=== PATIENT | female | born 1945 | race Caucasian/White ===

== ENCOUNTER 2016-09-29 15:43 | Inpatient (IN) | payer MEDICARE, BC ==
[~2016-09-29] VITALS: Ht 152.4 cm; Wt 81.4 kg
[2016-10-05] MEDS ORDERED: DEXI60CA PO (10:41)
[2016-10-05] MEDS ORDERED: HYDR-3580 PO (10:41)
[2016-10-05] MEDS ORDERED: CLOP75TA PO (10:41)
[2016-10-05] MEDS ORDERED: ISOS10TA3 PO (10:41)
[2016-10-05] MEDS ORDERED: BUDE3CAP PO (10:41)
[2016-10-05] MEDS ORDERED: ASPI1TAB69 PO (10:41)
[2016-10-05] MEDS ORDERED: D-20TAB3 PO (10:41)
[2016-10-05] MEDS ORDERED: FERR325T PO (10:41)
[2016-10-05] MEDS ORDERED: FURO40TA PO (10:41)
[2016-10-05] MEDS ORDERED: ACET500C PO (10:44)
[2016-10-05] MEDS ORDERED: WALKER WHEELS/F1 MIS (10:53)
[2016-10-05] MEDS ORDERED: METO50TA PO (10:53)
[2016-10-05] MEDS ORDERED: EVIS60TA PO (10:53)
[2016-10-05] MEDS ORDERED: LACTCAP8 PO (10:53)
[2016-10-05] MEDS ORDERED: ZOCO40TA PO (10:53)
[2016-10-05] MEDS ORDERED: SERT25TA83 PO (10:53)
[2016-10-05] MEDS ORDERED: RALO1TAB PO (10:53)
--- NOTE | 2016-10-06 09:09 | MH ---
cc: CHRISTINA [place] DATE OF ADMISSION: 10/06/2016 ADMISSION DIAGNOSIS Osteoarthritis of the left hip. HISTORY This patient is a 71-year-old female who had a previous right hip replacement arthroplasty and had done very well. The patient has had progressive pain in the region of her left hip. The patient had x-rays showing evidence of moderate to severe arthritis of the left hip. Despite conservative care including oral medications, altered activities, physical therapy, etc. she has had continued pain. The patient declined an intra-articular injection of the left hip due to a bad injection of a previous injection. At this point surgical treatment is reasonable. She now presents for surgical treatment. PAST MEDICAL HISTORY, SOCIAL HISTORY AND FAMILY HISTORY See attached notes. PHYSICAL EXAMINATION GENERAL: A 71-year-old female in moderate distress with her left hip. HEENT: Normocephalic, atraumatic. Pupils are equal, round, reactive to light and accommodation. Extraocular motions intact. NECK: Supple. CHEST: Clear. HEART: Regular rate and rhythm. ABDOMEN: Soft, nontender. VITAL SIGNS: Height 5 feet, weight 158 pounds, BMI of 30.9, blood pressure 132/78. DIRECTED EXAMINATION: Examination of the left hip, there is flexion at 80, internal rotation 20, external rotation is 30. There is significant pain with range of motion which is rated as moderate to significant. Strength is normal. NEUROLOGIC: Examination is within normal limits. IMPRESSION Osteoarthritis of the left hip. PLAN Left total hip replacement, arthroplasty. CONSENT The risks for surgery including infection, bleeding, loss of motion, continued pain, need for further surgery, neurologic, vascular injury. The patient understands these risks and wishes to press on with surgery as outlined above. Christina Ny MD MCG/CHRIS /5:45 PM /8:54 AM
[2016-10-06] MEDS ORDERED: EXPAREL PERI-ARTICULAR INJECTION (TOTAL VOL. 60 ML) P-ARTICULR SCH ×2 (11:00)
[2016-10-06] MEDS ORDERED: INSULIN HUMAN REGULAR 1,000 UNITS/10 ML VIAL SQ PRN (11:00)
[2016-10-06] MEDS ORDERED: SODIUM CHLORID 0.9% 500 ML IV PRN (11:00)
[2016-10-06] MEDS ORDERED: ceFAZolin 2 GM PREMIX 50 ML IV SCH (11:00)
[2016-10-06] MEDS ORDERED: CHLORHEXIDINE GLUCONATE 2 % 1 PACK (2 CLOTHS) TOPICAL PRN (11:00)
[2016-10-06] MEDS ORDERED: LACTATED RINGER'S 1000 ML IV PRN (11:00)
[2016-10-06] MEDS ORDERED: SODIUM CHLORIDE 0.9% IV SCH ×2 (11:00→17:55)
[2016-10-06] MEDS ORDERED: VANCOMYCIN 1000 MG/NS 250 ML (for <70 kg) IV SCH ×2 (11:00)
[2016-10-06] MEDS ORDERED: TRANEXAMIC ACID IV SCH ×2 (11:00→17:55)
[2016-10-06] MEDS ORDERED: POVIDONE IODINE 7.5% SCRUB 118 ML BOTTLE TOPICAL SCH (11:00)
[2016-10-06] MEDS ORDERED: METOPROLOL TARTRATE 25 MG TAB PO PRN (11:00)
[2016-10-06] MEDS ORDERED: POVIDONE IODINE 5% (ANTISEPSIS KIT) 4 APPLICATIONS EACH NARE PRN (11:00)
[2016-10-06] MEDS ORDERED: dexilant PO (11:21)
[2016-10-06] MEDS ORDERED: FERR324T4 PO (11:21)
[2016-10-06] MEDS ORDERED: ASPI81CH PO (11:21)
[2016-10-06] MEDS ORDERED: MAPA500C PO (11:21)
[2016-10-06 11:38] VITALS: BP 123/69; PULSE 65; RESP 16; TEMP 98; O2SAT 96
[2016-10-06] MEDS ORDERED: PROPOFOL 200 MG/20 ML AMP IV ONE (12:15)
[2016-10-06] MEDS ORDERED: NEOSTIGMINE 3 MG/3 ML SYR IV ONE (12:15)
[2016-10-06] MEDS ORDERED: ePHEDrine/NS 25 MG/5 ML SYR IV ONE (12:15)
[2016-10-06] MEDS ORDERED: PHENYLEPH/NS 1000 MCG/10 ML SYR IV ONE (12:16)
[2016-10-06] MEDS ORDERED: ONDANSETRON HCL 4 MG/2 ML VIAL IV PUSH ONE (12:16)
[2016-10-06] MEDS ORDERED: LACTATED RINGER'S 1000 ML INJ 1,000 ML IV ONE (12:16)
[2016-10-06] MEDS ORDERED: MIDAZOLAM HCL 2 MG/2 ML VIAL ONE (13:44)
[2016-10-06] MEDS ORDERED: FAMOTIDINE 20 MG/2 ML VIAL ONE (13:44)
--- NOTE | 2016-10-06 13:58 | EKG ---
Date Performed: 10/06/2016 Time Performed: 11:39:42 PTAGE: 71 years EKG: Sinus rhythm NORMAL ECG PREVIOUS TRACING : 02/26/2016 08.31 Compared to prior tracing no significant change DOCTOR: Jamin Sandoval Interpretating Date/Time 10/06/2016 13:56:50
[2016-10-06] MEDS ORDERED: TRANEXAMIC ACID INJ 1,000 MG/10 ML AMP IV ONE (14:55)
[2016-10-06] MEDS ORDERED: ceFAZolin INJ 1,000 MG VIAL IV ONE (15:04)
[2016-10-06] MEDS ORDERED: DO NOT ADM ANY ANTICOAGULANT DRUGS PRN (15:20)
[2016-10-06] MEDS ORDERED: BUPIVACAINE LIPOSOME PF 1.3% 20 ML VIAL INFIL ONE (15:54)
[2016-10-06] MEDS ORDERED: GENTAMICIN SULFATE 80 MG/2 ML VIAL IRRIGATION ONE (16:02)
--- NOTE | 2016-10-06 16:44 | PD.OP ---
cc: Karthik Alejo MD Operative Report Date of Surgery: October 06, 2016 Preoperative Diagnosis: Osteoarthritis left hip, severe Postoperative Diagnosis: Same Procedure: Left total hip replacement arthroplasty, direct anterior exposure Anesthesia: Gen. Surgeon: Karthik Alejo [employer] Instrument Mechanic(s): JUSTIN Arambula Operation and Findings: EBL: 300 cc INDICATION: This patient presents with significant hip pain related to severe osteoarthritis to the left hip. The patient's had a previous right hip replacement surgery approximately 7 months ago and has done well.. Despite extensive conservative care this patient continues to be painful and now presents for surgical treatment. NOTE: Annia Arambula PA-C was present for the entire surgical procedure as my miller first. In my medical opinion her skill and care was necessary for the proper management of this patient. COMPONENTS: COMPANY: [email or web address] CUP: Rampart, 48, 100 series, gription surface LINER: Altrx 32, neutral STEM: Corail, size 10, standard offset, hydroxyapatite-coated HEAD: 32, +1, 12/14 taper PROCEDURE: This patient was brought to the operating room and anesthetized in the supine position and positioned on the fracture table with both legs held extended. The left hip and leg was scrubbed with alcohol followed by Hibiclens followed by ChloraPrep and draped sterilely. Antibiotics were given within routine time window and a timeout was done. A 4 inch incision was made starting 2 cm distal and 2 cm lateral to the anterior superior iliac spine. The fascia prashanth was opened longitudinally. The interval between the fascia prashanth and the rectus was opened down to the capsule of the hip joint. Retractors were positioned allowing good visualization of the capsule. This was opened longitudinally and flaps were created. Stay sutures were utilized. Exposure was excellent. The neck was cut at the proper location using fluoroscopy as a guide. The head was removed. Deep retractors were positioned allowing good visualization of the acetabulum. Acetabulum was deepened down to the floor starting with a proper size reamer and reaming up to 47 mm. A trial was utilized. Fluoroscopy was used to check position and confirmed satisfactory alignment. The rim was reamed with a 48 mm reamer and the final cup was positioned in approximately 20 of anteversion and 40-45 of abduction. Position was satisfactory. A single hole eliminator was positioned followed by the final liner. The lifting hook was utilized. The leg was dropped to the floor, maximally externally rotated and brought across the midline. Retractors were positioned. A box osteotome was utilized followed by progressive broaching to the proper stem size. Trial reduction showed excellent alignment and fit. With 60 of external rotation the leg was dropped to the floor without evidence of anterior subluxation. The wound was irrigated. The final stem was inserted and was found to be very stable. The final reduction using the final head. Stability was as previously noted. Intraoperative x-rays were taken. The wound was irrigated copiously. Hemostasis was controlled. Local anesthesia was utilized. The capsule was repaired with #2 Tycron sutures. The fascia prashanth was repaired with running 0 PDS on a loop. Subcutaneous tissue was approximated with 2-0 Vicryl and skin with running intradermal 3-0 Vicryl followed by Steri-Strips. A sterile dressing was applied. The patient was awakened and taken to the recovery room in satisfactory condition. FINDINGS: There was severe osteoarthritis of the left hip. There was complete erosion of articular cartilage with exposed bone. There was no complication that was appreciated. Karthik Alejo MD October 06, 2016 16:44
[2016-10-06] MEDS ORDERED: MISCELLANEOUS NURSING INFORMATION XX PRN (16:45)
[2016-10-06] MEDS ORDERED: HYDROmorphone HCL PCA 6 MG/30 ML IV SCH (16:45)
[2016-10-06] MEDS ORDERED: NALOXONE HCL 0.4 MG/ML AMP IV PRN ×2 (16:45)
[2016-10-06] MEDS ORDERED: MISCELLANEOUS PHARMACY INFORMATION XX ONE (16:45)
[2016-10-06] MEDS ORDERED: ACETAMINOPHEN/HYDROcodone 325 MG/10 MG TAB PO PRN (16:45)
[2016-10-06] MEDS ORDERED: Post-op Orders (for Pharmacy) MISC XX ONE (16:45)
[2016-10-06] MEDS ORDERED: ONDANSETRON HCL 4 MG/2 ML VIAL IVP PRN (16:45)
[2016-10-06] MEDS ORDERED: SODIUM CHLORIDE 0.9% FLUSH 5 ML FLUSH IVF PRN (16:45)
[2016-10-06] MEDS ORDERED: HYDR-3583 PO (16:50)
[2016-10-06] MEDS ORDERED: XARE10TA PO (16:50)
[2016-10-06] MEDS ORDERED: ACETAMINOPHEN 1000 MG/100 ML VIAL IV ONE (16:52)
--- NOTE | 2016-10-06 16:52 | HHI.FF ---
Face to Face Verification Diagnosis: (1) Primary osteoarthritis of left hip Physical Therapy Gait training Hip: Total hip, Progress to weight bearing Left LE Weight Bearing: WB as tolerated Nursing RN: 3 days/week x 2 weeks Dressing Changes: Do not change dressing I have seen patient Alice Sage on 10/06/16. My clinical findings support the need for the requested home health care services because: High risk of falls I certify that my clinical findings support that this patient is homebound because: Post-op weakness Karthik Alejo MD October 06, 2016 16:52
[2016-10-06] MEDS ORDERED: WALKER WHEELS/F1 MIS (16:53)
[2016-10-06] MEDS ORDERED: PILL SPLITTER OTHER PRN (17:00)
[2016-10-06] MEDS ORDERED: *ONDANSETRON 4 MG VIAL PERIprocedural Use ONLY ONE (17:25)
[2016-10-06] MEDS ORDERED: fentaNYL CITRATE 250 MCG/5 ML AMP ONE (17:26)
[2016-10-06] MEDS: LACTATED RINGER'S 1000 ML INJ 1,000 ML IV SCH (17:34)
[2016-10-06] MEDS ORDERED: *PROMETHAZINE 25 MG/ML VIAL PERIprocedural use ONLY ONE (17:43)
[2016-10-06 20:00] VITALS: BP 142/69; PULSE 79; RESP 22; TEMP 96.4; O2SAT 99
[2016-10-06 20:06] VITALS: O2SAT 95
[2016-10-06] MEDS: PANTOPRAZOLE SOD 40 MG DELAYED RELEASE TAB PO SCH (20:30)
[2016-10-06] MEDS: SENNOSIDES 8.6 MG TAB PO SCH (20:31)
[2016-10-06] MEDS: SODIUM CHLORIDE 0.9% FLUSH 5 ML FLUSH IVF SCH (20:32)
[2016-10-06] MEDS: ISOSORBIDE MONONITRATE 20 MG TAB PO SCH (20:32)
[2016-10-06] MEDS: MAGNESIUM HYDROXIDE SUSP 30 ML CUP PO SCH (20:33)
--- NOTE | 2016-10-06 20:33 | RADRPT ---
EXAM DATE/TIME: 10/06/2016 15:25 [facility] COMPARISON: No previous studies available for comparison. INDICATIONS : Left anterior total hip surgery. MEDICAL HISTORY : Unobtainable. SURGICAL HISTORY : Unobtainable. ENCOUNTER: Initial ACUITY: 1 day PAIN SCORE: Non-responsive. LOCATION: Left anterior hip. FINDINGS: There is a bipolar left hip arthroplasty that appears intact and normally aligned. No evidence of an acute complication. CONCLUSION: Expected intraoperative radiographic appearance left bipolar hip arthroplasty. Ta De Leon MD on October 06, 2016 at 20:31 Board Certified Radiologist. This report was verified electronically.
[2016-10-06] MEDS: PCA - TOTAL MG DILAUDID DELIVERED PER SHIFT OTHER SCH (20:34)
[2016-10-06] MEDS: PCA - TOTAL MG MORPHINE DELIVERED PER SHIFT SCH (20:37)
[2016-10-07] VITALS (8 sets, daily range): BP systolic 106–133; BP diastolic 60–76; PULSE 71–105; RESP 16–22; TEMP 95.8–98.2; O2SAT 93–98
[2016-10-07] MEDS: PCA - TOTAL MG DILAUDID DELIVERED PER SHIFT OTHER SCH (05:20)
[2016-10-07] MEDS: LACTATED RINGER'S 1000 ML INJ 1,000 ML IV SCH ×2 (05:20→16:53)
[2016-10-07] MEDS: PCA - TOTAL MG MORPHINE DELIVERED PER SHIFT SCH ×3 (05:20→21:36)
[2016-10-07 06:51] LABS: HEMATOCRIT 28.2 % (35.0-46.0); REVIEW FLAG FINAL
--- NOTE | 2016-10-07 07:55 | PD.ORT.PN ---
Subjective Subjective Remarks No complaints. Mild left thigh discomfort Once to go home from hospital Objective Vitals Vital Signs Date Time Temp Pulse Resp B/P Pulse Ox O2 Delivery O2 Flow Rate FiO2 10/07/16 05:20 18 10/07/16 04:00 96.9 84 20 106/62 95 10/07/16 00:00 96.1 87 22 112/73 96 10/06/16 20:34 14 10/06/16 20:06 95 Nasal Cannula 2.00 10/06/16 20:00 96.4 79 22 142/69 99 10/06/16 18:15 97.5 66 15 139/70 97 Nasal Cannula 2 10/06/16 18:00 75 17 138/63 98 Nasal Cannula 2 10/06/16 17:45 67 18 138/76 98 Nasal Cannula 2 10/06/16 17:34 15 10/06/16 17:30 64 13 131/83 96 Nasal Cannula 3 10/06/16 17:15 97.6 82 20 166/79 98 Nasal Cannula 3 10/06/16 11:38 98.0 65 16 123/69 96 I/O 10/06/16 10/06/16 10/06/16 10/07/16 10/07/16 10/07/16 07:00 15:00 23:00 07:00 15:00 23:00 Intake Total 2470 ml Output Total 830 ml 300 ml Balance 1640 ml -300 ml Intake Oral 780 ml IV Total 290 ml Other 1400 ml Output Urine Total 580 ml 300 ml Estimated Blood Loss 250 ml # Bowel Movements 0 0 Result Diagram: 10/07/16 0613 Objective Remarks Dressing dry No significant swelling No pain with range of motion No calf Tenderness. Negative Homans sign. Motor examination is normal Assessment & Plan Ortho Post Op Day #: 1 Problem List: Assessment and Plan Osteoarthritis left hip. Left NIDIA, direct anterior: POD #1 PLAN: Weightbearing as tolerated [place] for pain Xarelto for 28 days Discharge later today or Monday morning No dressing change Home healthcare and home physical therapy Follow-up in 2 weeks Karthik Alejo MD October 07, 2016 07:55
--- NOTE | 2016-10-07 07:58 | HHI.DS ---
Discharge Summary Admission Date October 06, 2016 at 10:30 Discharge Date: October 08, 2016 Admitting Diagnosis Osteoarthritis hip Diagnosis: (1) Primary osteoarthritis of left hip Diagnosis: Principal Procedures Left total hip replacement arthroplasty, direct anterior exposure Brief History This is a 71 year old female patient who presents with progressive arthritis of the left hip. The patient has had conservative care including medications physical therapy and altered activity. She had a previous right hip replacement and has done well. The patient had an adverse reaction to an injection of cortisone and that was not part of her treatment paradigm. CBC/BMP: 10/07/16 0613 Significant Findings Laboratory Tests Test 10/07/16 06:13 Hemoglobin 9.5 GM/DL (11.6-15.3) Hematocrit 28.2 % (35.0-46.0) PE at Discharge Dressing dry No significant swelling No pain with range of motion No calf Tenderness. Negative Homans sign. Motor examination is normal Hospital Course The patient has surgical treatment on 10/06/16 for left anterior total hip replacement under general anesthetic. She had an unremarkable perioperative course. Pt Condition on Discharge: Good Discharge Disposition: Discharge Home Discharge Instructions Diet Instructions: As Tolerated, No Restrictions Activities You Can Perform: Weight Bearing as Ana Additional Activity Instruc.: Hip precautions after anterior total hip Karthik Alejo MD October 07, 2016 07:58
[2016-10-07] MEDS: MAGNESIUM HYDROXIDE SUSP 30 ML CUP PO SCH ×2 (08:46→21:22)
[2016-10-07] MEDS: SODIUM CHLORIDE 0.9% FLUSH 5 ML FLUSH IVF SCH ×2 (08:46→21:00)
[2016-10-07] MEDS: RALOXIFENE HCL 60 MG TAB PO SCH (08:46)
[2016-10-07] MEDS: PRAVASTATIN SOD 80 MG TAB PO SCH (08:47)
[2016-10-07] MEDS: FUROSEMIDE 40 MG TAB PO SCH (08:47)
[2016-10-07] MEDS: METOPROLOL TARTRATE 50 MG TAB PO SCH (08:47)
[2016-10-07] MEDS: ISOSORBIDE MONONITRATE 20 MG TAB PO SCH ×2 (08:47→21:23)
[2016-10-07] MEDS: SERTRALINE HCL 50 MG TAB PO SCH (08:47)
[2016-10-07] MEDS: PANTOPRAZOLE SOD 40 MG DELAYED RELEASE TAB PO SCH ×2 (08:47→21:23)
[2016-10-07] MEDS ORDERED: BUDESONIDE 3 MG PO SCH ×2 (09:00)
[2016-10-07] MEDS ORDERED: NON-FORMULARY DRUG (Sertraline 25 MG) PO SCH (09:00)
[2016-10-07] MEDS ORDERED: NON-FORMULARY DRUG (Simvastatin (Zocor) 40 MG) PO SCH (09:00)
[2016-10-07] MEDS: RIVAROXABAN 10 MG TAB PO SCH (15:28)
[2016-10-07] MEDS: ACETAMINOPHEN/HYDROcodone 325 MG/10 MG TAB PO PRN ×2 (15:31→21:22)
[2016-10-07] MEDS: SENNOSIDES 8.6 MG TAB PO SCH (21:22)
[2016-10-08] VITALS (9 sets, daily range): BP systolic 88–138; BP diastolic 54–69; PULSE 88–106; RESP 16–20; TEMP 98.9–99.8; O2SAT 91–95
[2016-10-08] MEDS: PCA - TOTAL MG MORPHINE DELIVERED PER SHIFT SCH ×3 (05:53→22:00)
[2016-10-08] MEDS: LACTATED RINGER'S 1000 ML INJ 1,000 ML IV SCH ×2 (06:30→17:36)
[2016-10-08] MEDS: MAGNESIUM HYDROXIDE SUSP 30 ML CUP PO SCH ×2 (08:06→20:40)
[2016-10-08] MEDS: SERTRALINE HCL 50 MG TAB PO SCH (08:07)
[2016-10-08] MEDS: ISOSORBIDE MONONITRATE 20 MG TAB PO SCH ×2 (08:07→20:38)
[2016-10-08] MEDS: RALOXIFENE HCL 60 MG TAB PO SCH (08:08)
[2016-10-08] MEDS: PRAVASTATIN SOD 80 MG TAB PO SCH (08:09)
[2016-10-08] MEDS: METOPROLOL TARTRATE 50 MG TAB PO SCH (08:09)
[2016-10-08] MEDS: ACETAMINOPHEN/HYDROcodone 325 MG/10 MG TAB PO PRN ×3 (08:09→20:38)
[2016-10-08] MEDS: PANTOPRAZOLE SOD 40 MG DELAYED RELEASE TAB PO SCH ×2 (08:09→20:37)
[2016-10-08] MEDS: FUROSEMIDE 40 MG TAB PO SCH (08:10)
[2016-10-08] MEDS: SODIUM CHLORIDE 0.9% FLUSH 5 ML FLUSH IVF SCH ×2 (08:10→20:40)
--- NOTE | 2016-10-08 09:04 | PD.ORT.PN ---
Subjective Post Op Day #: 2 Subjective Remarks Patient working with PT. Admits left hip pain well controlled. She does not feel ready for discharge today. Plan for HHC. Objective Vitals Vital Signs Date Time Temp Pulse Resp B/P Pulse Ox O2 Delivery O2 Flow Rate FiO2 10/08/16 08:14 Nasal Cannula 2.00 10/08/16 07:37 99.6 96 18 138/66 95 10/08/16 04:00 99.0 98 20 129/69 94 10/08/16 00:01 99.5 106 20 118/62 94 10/07/16 22:22 18 10/07/16 20:03 Nasal Cannula 2.00 10/07/16 20:00 98.0 105 20 116/67 95 10/07/16 16:00 98.2 71 16 131/74 98 10/07/16 16:00 123/76 10/07/16 12:27 93 10/07/16 12:15 96.4 84 16 123/70 98 I/O 10/07/16 10/07/16 10/07/16 10/08/16 10/08/16 10/08/16 06:59 14:59 22:59 06:59 14:59 22:59 Intake Total 1080 ml 240 ml Output Total 300 ml Balance -300 ml 1080 ml 240 ml Intake Oral 1080 ml 240 ml Output Urine Total 300 ml # Voids 5 1 # Bowel Movements 0 0 Result Diagram: 10/07/16 0613 Imaging Last Impressions Hip X-Ray 10/06/16 0000 Signed Impressions: Service Date/Time: September 15:25 - CONCLUSION: Expected intraoperative radiographic appearance left bipolar hip arthroplasty. Ta De Leon MD Procedures Left total hip replacement arthroplasty, direct anterior exposure Objective Remarks Dressing dry No significant swelling No pain with range of motion No calf Tenderness. Negative Homans sign. Motor examination is normal Assessment & Plan Ortho Post Op Day #: 2 Problem List: (1) Primary osteoarthritis of left hip Assessment and Plan Osteoarthritis left hip. Left NIDIA, direct anterior: POD #2 PLAN: Weightbearing as tolerated [place] for pain Xarelto for 28 days Discharge most likely tomorrow with HHC No dressing change Home healthcare and home physical therapy Follow-up in 2 weeks Caity Arambula October 08, 2016 09:03
[2016-10-08] MEDS: RIVAROXABAN 10 MG TAB PO SCH (14:23)
[2016-10-08] MEDS: SENNOSIDES 8.6 MG TAB PO SCH (20:39)
[2016-10-09] MEDS: ACETAMINOPHEN/HYDROcodone 325 MG/10 MG TAB PO PRN ×2 (04:53→13:14)
[2016-10-09] MEDS: PCA - TOTAL MG MORPHINE DELIVERED PER SHIFT SCH ×2 (06:00→06:55)
[2016-10-09] MEDS: LACTATED RINGER'S 1000 ML INJ 1,000 ML IV SCH (06:55)
[2016-10-09] MEDS: MAGNESIUM HYDROXIDE SUSP 30 ML CUP PO SCH (07:17)
--- NOTE | 2016-10-09 07:44 | PD.ORT.PN ---
Subjective Post Op Day #: 3 Subjective Remarks Patient awake and alert, answering questions appropiately. Admits left hip pain well controlled but has problems 'getting going'. She feels ready for discharge today to home. Plan for HHC. Objective Vitals Vital Signs Date Time Temp Pulse Resp B/P Pulse Ox O2 Delivery O2 Flow Rate FiO2 10/08/16 23:57 98.9 100 16 112/60 92 10/08/16 20:17 99.5 93 16 102/54 93 10/08/16 20:00 93 Nasal Cannula 1.00 10/08/16 17:07 Nasal Cannula 2.00 10/08/16 17:05 120/68 10/08/16 14:58 91 Nasal Cannula 2.00 10/08/16 14:58 98.9 89 18 88/55 91 10/08/16 13:00 16 10/08/16 11:59 Room Air 10/08/16 11:50 99.8 88 18 109/60 95 10/08/16 10:00 94 Nasal Cannula 2.00 10/08/16 08:14 Nasal Cannula 2.00 I/O 10/08/16 10/08/16 10/08/16 10/09/16 10/09/16 10/09/16 07:00 15:00 23:00 07:00 15:00 23:00 Intake Total 240 ml 480 ml 720 ml 480 ml Balance 240 ml 480 ml 720 ml 480 ml Intake Oral 240 ml 480 ml 720 ml 480 ml # Voids 1 4 2 2 # Bowel Movements 0 3 2 Result Diagram: 10/07/16 0613 Imaging Last Impressions Hip X-Ray 10/06/16 0000 Signed Impressions: Service Date/Time: September 15:25 - CONCLUSION: Expected intraoperative radiographic appearance left bipolar hip arthroplasty. Ta De Leon MD Procedures Left total hip replacement arthroplasty, direct anterior exposure Objective Remarks Dressing dry No significant swelling No pain with range of motion No calf Tenderness. Negative Homans sign. Motor examination is normal Assessment & Plan Ortho Post Op Day #: 3 Problem List: (1) Primary osteoarthritis of left hip Assessment and Plan Osteoarthritis left hip. Left NIDIA, direct anterior: POD #3 PLAN: Weightbearing as tolerated [place] for pain Xarelto for 28 days No dressing change Home healthcare and home physical therapy - orthopedic clear for discharge today Follow-up in 2 weeks Caity Arambula October 09, 2016 07:44
[2016-10-09 08:00] VITALS: BP 124/70; PULSE 103; RESP 17; TEMP 98.7; O2SAT 90
[2016-10-09] MEDS: SODIUM CHLORIDE 0.9% FLUSH 5 ML FLUSH IVF SCH (09:00)
[2016-10-09] MEDS: RALOXIFENE HCL 60 MG TAB PO SCH (09:00)
[2016-10-09] MEDS: PANTOPRAZOLE SOD 40 MG DELAYED RELEASE TAB PO SCH (09:03)
[2016-10-09] MEDS: SERTRALINE HCL 50 MG TAB PO SCH (09:03)
[2016-10-09] MEDS: METOPROLOL TARTRATE 50 MG TAB PO SCH (09:03)
[2016-10-09] MEDS: PRAVASTATIN SOD 80 MG TAB PO SCH (09:03)
[2016-10-09] MEDS: FUROSEMIDE 40 MG TAB PO SCH (09:04)
[2016-10-09] MEDS: ISOSORBIDE MONONITRATE 20 MG TAB PO SCH (09:07)
[2016-10-09 10:40] VITALS: O2SAT 98
[2016-10-09 12:00] VITALS: BP 109/63; PULSE 84; RESP 18; TEMP 98.8; O2SAT 98
[2016-10-09] MEDS: RIVAROXABAN 10 MG TAB PO SCH (13:11)
[2016-10-09 14:27] VITALS: RESP 16
== END 2016-10-09 15:10 | disposition home health service (06) | DRG 470 ==
LOC: HSDI 10-06 10:30 → N06B 10-06 18:40
PROVIDERS: ADMIT Orthopaedic Surgery Orthopaedic Surgery of the Spine; ATTEND Orthopaedic Surgery Orthopaedic Surgery of the Spine
PROC: 0SRB0JA Replacement of Left Hip Joint with Synthetic Substitute, Uncemented, Open Approach (ICD-10-PCS; principal; 2016-10-06 14:27)
DX: M16.12 Unilateral primary osteoarthritis, left hip (principal); Z96.641 Presence of right artificial hip joint
CPT/HCPCS: 73502; 76000; 85014; 85018; 86850; 86890; 86900; 86901; 86920; 93005; 94150; C1776; C9290; J0131; J0690; J1170; J1580; J2250; J2370; J2405; J2550; J2710; J3010; J3370; J7050; J7120